=== PATIENT | female | born 1955 | race Caucasian/White ===

== ENCOUNTER 2018-05-18 11:12 | Emergency (ER) | payer BC ==
[2018-05-18 11:52] LABS: #Basophils 0.1 thou/uL (0.0-0.2); #Eosinphils 0.5 thou/uL (0.0-0.7); #Lymphocytes 1.6 thou/uL (1.20-3.40); #Monocytes 0.6 thou/uL (0.11-0.59); #Neutrophils 4.8 thou/uL (1.40-6.50); %Basophils 0.7 % (0.0-1.0); %Eosinophils 6.7 % (0.0-10.0); %Lymphocytes 21.2 % (21.0-51.0); %Monocytes 8.2 % (0.0-10.0); %Neutrophils 63.2 % (42.0-75.0); Hemoglobin 11.2 g/dL (12.0-16.0); Mean Corpuscular HGB CONC 34.2 g/dL (32.0-36.0); Mean Corpuscular Hemoglobin 29.4 pg (27.0-31.0); Mean Corpuscular Volume 85.9 fL (78.0-98.0); Mean Platelet Volume 7.5 fL (7.4-10.4); Platelet Count 213 thou/uL (130-400); RBC Distribution Width 12.2 % (11.5-14.5); Red Blood Cell (RBC) Count 3.82 mill/uL (4.20-5.40); White Blood Cell (WBC) Count 7.6 thou/uL (4.8-10.8)
[2018-05-18] MEDS ORDERED: Lidocaine Viscous Sol 2% 15 ml UD Cup ONE (11:52)
[2018-05-18] MEDS ORDERED: Mag-Al Plus 1200 MG/1200 MG/120 MG/30 ML UDCUP ONE (11:52)
[2018-05-18 12:09] LABS: ALT (SGPT) 11 U/L (8-55); AST (SGOT) 17 U/L (5-34); Albumin 3.6 g/dL (3.4-4.8); Alkaline Phosphatase 57 U/L (40-150); Anion Gap 12 mmol/L (10-20); BUN (Urea Nitrogen) 8 mg/dL (9.8-20.1); Bilirubin, Total 0.5 mg/dL (0.2-1.2); CK (CPK) 66 U/L (29-168); Calc. Creatinine Clearance 0 mL/min (70-130); Calcium 8.8 mg/dL (7.8-10.44); Carbon Dioxide 28 mmol/L (23-31); Chloride 106 mmol/L (98-107); Estimated GFR-MDRD 80; Globulin 2.4 g/dL (2.4-3.5); Glucose 146 mg/dL (80-115); Lipase 9 U/L (8-78); Potassium 4.1 mmol/L (3.5-5.1); Sodium 142 mmol/L (136-145)
[2018-05-18 12:11] LABS: CKMB 0.7 ng/mL (0-6.6); Troponin I 0.012 ng/mL (< 0.028)
[2018-05-18 14:06] LABS: Troponin I Less than 0.010 ng/mL (< 0.028)
--- NOTE | 2018-05-18 14:16 | CT ---
CT ANGIOGRAM OF THE CHEST: HISTORY: Chest pain. Hysterectomy yesterday. COMPARISON: None. TECHNIQUE: CT angiogram of the chest is performed in the axial plane. Three-dimensional reformatted images are submitted for interpretation. FINDINGS: Bilateral breast implants are noted. No evidence of axillary lymphadenopathy. Previous thyroidectomy is noted. No mediastinal mass, lymphadenopathy, or hematoma. There is mild tortuosity of the midthoracic esoph neymar. Evaluation is limited. Small hiatal hernia is suspected. There is evidence of surgery sugges ting previous bariatric change. Nonemergent upper GI is recommended. Heart size is normal. No sign ificant pericardial fluid. Small left and moderate right-sided pleural effusion. Patchy ground-glass opacities in the lung pare nchyma. Atelectatic changes are noted. Calcified granuloma in the superior segment of the left lowe r lobe. Nonspecific nodule in the superior segment of the right lower lobe measuring 0.6 cm. Pleura l-based nodule in the lateral aspect of the right lower lobe measuring 0.3 cm. Visualized upper solid organs are unremarkable. Adequate contrast opacification of the pulmonary arterial system to the level of the segmental arteri es. No filling defect to suggest thromboembolism. The visualized aorta has a normal caliber. IMPRESSION: 1. No evidence of pulmonary artery embolism to the level of the segmental arteries. 2. Small bilateral effusions with patchy opacities in the lung parenchyma. Correlate for congestive heart failure/volume overload. 3. Nonspecific nodules in the right lung as described above. Based on the patient's risk factors, a followup CT in 6-12 months. POS: TODD
--- NOTE | 2018-05-18 21:39 | RAD ---
AP PORTABLE CHEST ONE VIEW: 05/18/2018 1200 HOURS FINDINGS: An AP portable film shows the heart to be borderline in size. There is no clear congestion of the ve ssels. No large pleural effusions are seen, but small ones would be missed on this study. There is probably a calcified lymph node in the left hilum. The trachea is midline. IMPRESSION: No acute findings. POS: HOME
== END 2018-05-18 14:30 | disposition home or self-care (01) ==
LOC: BURERS 11:12
DX: R07.9 Chest pain, unspecified (principal); I25.10 Atherosclerotic heart disease of native coronary artery without angina pectoris; E03.9 Hypothyroidism, unspecified; E78.5 Hyperlipidemia, unspecified; Z87.891 Personal history of nicotine dependence; Z79.899 Other long term (current) drug therapy; Z79.82 Long term (current) use of aspirin
CPT/HCPCS: 36415; 71045; 71275; 80053; 82550; 82553; 83690; 83880; 84484; 85025; 85379; 93005; 94760

== ENCOUNTER 2019-11-20 15:31 | Emergency (ER) | payer BC ==
[2019-11-20] MEDS ORDERED: Ibuprofen 200 MG TAB ONE (16:09)
--- NOTE | 2019-11-20 16:28 | RAD ---
RIGHT ANKLE THREE VIEWS: 11/20/19 COMPARISON: None. HISTORY: Injury, trauma, pain. FINDINGS: There is a transverse nondisplaced fracture at the tip of the lateral malleolus with associated overl inocencia lateral soft tissue swelling. No evidence for dislocation. Talar dome and ankle mortise are wendy sly intact otherwise. There is mild enthesophyte formation at the insertion of the Achilles tendon. IMPRESSION: Nondisplaced transverse fracture at the tip of the lateral malleolus. POS: TODD
== END 2019-11-20 16:30 | disposition home or self-care (01) ==
LOC: BURERS 15:31
DX: S82.64XA Nondisplaced fracture of lateral malleolus of right fibula, initial encounter for closed fracture (principal); E03.9 Hypothyroidism, unspecified; I10 Essential (primary) hypertension; E78.5 Hyperlipidemia, unspecified; F32.9 Major depressive disorder, single episode, unspecified; I25.10 Atherosclerotic heart disease of native coronary artery without angina pectoris; Z87.891 Personal history of nicotine dependence; Z79.899 Other long term (current) drug therapy; Z79.82 Long term (current) use of aspirin; W18.42XA Slipping, tripping and stumbling without falling due to stepping into hole or opening, initial encounter

== ENCOUNTER 2023-12-19 07:07 | Emergency (ER) | payer BC ==
[2023-12-19] MEDS ORDERED: Ondansetron PF 4 MG/2 ML Vial ONE (07:23)
[2023-12-19 07:36] LABS: #Eosinphils 0.1 thou/uL (0.0-0.7); #Lymphocytes 1.6 thou/uL (1.20-3.40); #Monocytes 0.5 thou/uL (0.11-0.59); #Neutrophils 6.4 thou/uL (1.40-6.50); %Basophils 0.5 % (0.0-1.0); %Eosinophils 1.2 % (0.0-10.0); %Lymphocytes 18.2 % (21.0-51.0); %Monocytes 5.9 % (0.0-10.0); %Neutrophils 74.2 % (42.0-75.0); Hemoglobin 13.3 g/dL (12.0-16.0); Mean Corpuscular HGB CONC 33.2 g/dL (32.0-36.0); Mean Corpuscular Hemoglobin 29.7 pg (27.0-31.0); Mean Corpuscular Volume 89.3 fl (78.0-98.0); Mean Platelet Volume 8.4 fL (7.4-10.4); Platelet Count 194 10x3/uL (130-400); RBC Distribution Width 11.9 % (11.5-14.5); Red Blood Cell (RBC) Count 4.48 mill/uL (4.20-5.40); White Blood Cell (WBC) Count 8.6 10x3/uL (4.8-10.8)
[2023-12-19 07:38] LABS: Bilirubin Negative (Negative); Blood, Urine Negative (Negative); Clarity Clear (Clear); Glucose, Urine (Dipstick) Negative (Negative); Ketone, Urine Negative (Negative); Leukocyte Negative (Negative); Nitrite Negative (Negative); Protein, Urine (Dipstick) Negative (Neg-Trace); Specific Gravity, Urine 1.025 (1.005-1.030); pH, Urine 7.5 (5.0-9.0)
[2023-12-19 07:46] LABS: Bacteria/HPF None Seen HPF (None Seen); CAUTI Indications for Culture Dysuria,urgency,freq; RBC/HPF None Seen HPF (0-3); Squamous Epithelial 0-3 HPF (0-3); Urine Culture Reflex No No; WBC/HPF None Seen HPF (0-3)
[2023-12-19 07:49] LABS: ALT (SGPT) 28 U/L (8-55); AST (SGOT) 29 U/L (5-34); Albumin 4.1 g/dL (3.4-4.8); Alkaline Phosphatase 73 U/L (40-110); Anion Gap 12 mmol/L (10-20); BUN (Urea Nitrogen) 11 mg/dL (9.8-20.1); Bilirubin, Total 0.6 mg/dL (0.2-1.2); Calc. Creatinine Clearance 0 mL/min (70-130); Calcium 8.9 mg/dL (7.8-10.44); Carbon Dioxide 24 mmol/L (23-31); Chloride 108 mmol/L (98-107); Estimated GFR 96; Globulin 2.1 g/dL (2.4-3.5); Glucose 105 mg/dL (80-115); Lipase 51 U/L (8-78); Potassium 4.1 mmol/L (3.5-5.1); Protein, Total 6.2 g/dL (5.8-8.1); Sodium 140 mmol/L (136-145)
== END 2023-12-19 08:28 | disposition home or self-care (01) ==
LOC: BURERS 07:07
DX: R11.2 Nausea with vomiting, unspecified (principal); R19.7 Diarrhea, unspecified; F17.210 Nicotine dependence, cigarettes, uncomplicated
CPT/HCPCS: 36415; 80053; 81001; 83605; 83690; 85025; 96361; 96374; J2405

== ENCOUNTER 2024-06-20 12:09 | Emergency (ER) | payer BC | END 2024-06-20 14:06 | disposition home or self-care (01) | LOC: BURERS 12:09 | DX: S92.511A Displaced fracture of proximal phalanx of right lesser toe(s), initial encounter for closed fracture (principal); F17.210 Nicotine dependence, cigarettes, uncomplicated; W22.8XXA Striking against or struck by other objects, initial encounter; Y93.01 Activity, walking, marching and hiking | CPT/HCPCS: 28515 ==

== ENCOUNTER 2025-04-06 18:02 | Emergency (ER) | payer BC, MEDICARE ==
[2025-04-06] MEDS ORDERED: Nitroglycerin 0.4 MG TAB 1 EACH ONE (18:19)
[2025-04-06] MEDS ORDERED: Aspirin Chewable 81 MG TAB ONE (18:20)
[2025-04-06 18:29] LABS: #Basophils 0.1 thou/uL (0.0-0.2); #Eosinophils 0.1 thou/uL (0.0-0.7); #Lymphocytes 3.1 thou/uL (1.20-3.40); #Monocytes 0.6 thou/uL (0.11-0.59); #Neutrophils 3.6 thou/uL (1.40-6.50); %Eosinophils 1.6 % (0.0-10.0); %Lymphocytes 41.1 % (21.0-51.0); %Monocytes 8.2 % (0.0-10.0); %Neutrophils 48.1 % (42.0-75.0); Hematocrit 36.7 % (36.0-47.0); Hemoglobin 12.3 g/dL (12.0-16.0); Mean Corpuscular HGB CONC 33.5 g/dL (32.0-36.0); Mean Corpuscular Hemoglobin 29.6 pg (27.0-31.0); Mean Corpuscular Volume 88.6 fl (78.0-98.0); Mean Platelet Volume 7.6 fL (7.4-10.4); Platelet Count 201 10x3/uL (130-400); RBC Distribution Width 11.9 % (11.5-14.5); Red Blood Cell (RBC) Count 4.15 mill/uL (4.20-5.40); White Blood Cell (WBC) Count 7.5 10x3/uL (4.8-10.8)
[2025-04-06 18:45] LABS: ALT (SGPT) 15 U/L (Less than 34); AST (SGOT) 31 U/L (11-34); Albumin 3.9 g/dL (3.1-4.5); Alkaline Phosphatase 62 U/L (40-110); Anion Gap 14 mmol/L (10-20); BUN (Urea Nitrogen) 9 mg/dL (9.8-20.1); Bilirubin, Total 0.5 mg/dL (0.3-1.2); Calc. Creatinine Clearance 0 mL/min (70-130); Calcium 8.7 mg/dL (7.8-10.44); Carbon Dioxide 24 mmol/L (23-31); Chloride 108 mmol/L (98-107); Estimated GFR 95; Globulin 2.5 g/dL (2.4-3.5); Glucose 86 mg/dL (80-115); Lipase 50 U/L (8-78); Potassium 3.5 mmol/L (3.5-5.1); Protein, Total 6.4 g/dL (5.8-8.1); Sodium 142 mmol/L (136-145)
[2025-04-06 18:47] LABS: Troponin I Less than 0.010 ng/mL (< 0.028)
== END 2025-04-06 19:27 | disposition home or self-care (01) ==
LOC: BURERS 18:02
DX: R07.89 Other chest pain (principal); E78.5 Hyperlipidemia, unspecified; F17.210 Nicotine dependence, cigarettes, uncomplicated; Z79.899 Other long term (current) drug therapy
CPT/HCPCS: 71045; 80053; 83690; 84484; 85025; 93005; 94760